=== PATIENT | female | born 1995 | race Two or more races ===

== ENCOUNTER 2023-05-22 14:00 | Inpatient (IN) | payer BC ==
[2023-05-22 15:06] VITALS: BMI 36.5
[2023-05-22 15:53] LABS: BASO % 0.3 % (0-2.0); EOS % 0.4 % (0-4.5); HEMATOCRIT 39.9 % (32.4-45.2); HEMOGLOBIN 12.8 GM/dL (10.7-15.3); LYMPH % 20.2 % (8-40); MCH 30.2 pg (25.7-33.7); MCHC 32.2 g/dl (32.0-36.0); MEAN CELL VOLUME 93.9 fl (80-96); MEAN PLT VOLUME 8.3 fl (7.5-11.1); MONO % 4.4 % (3.8-10.2); NEUT % 74.7 % (42.8-82.8); PLATELET COUNT 195 10^3/uL (134-434); RBC 4.25 M/mm3 (3.60-5.2); RDW 14.6 % (11.6-15.6); WHITE BLOOD COUNT 9.1 K/mm3 (4.0-10.0)
[2023-05-22 16:32] LABS: POTASSIUM 3.8 mmol/L (3.5-5.1)
[2023-05-22 16:33] LABS: CALCIUM 8.7 mg/dL (8.5-10.1)
[2023-05-22 16:34] LABS: BLOOD UREA NITROGEN 7.6 mg/dL (7-18)
[2023-05-22 16:37] LABS: CREATININE 0.6 mg/dL (0.55-1.3)
[2023-05-22] MEDS ORDERED: DINOPROSTONE 10 MG VAGINAL SUPPOSITORY VG ONE (16:44)
[2023-05-22 16:48] LABS: INR 0.89 (0.83-1.09); PROTHROMBIN TIME (PATIENT) 10.3 SEC (9.7-13.0)
[2023-05-22 16:50] LABS: ACTIVATED PTT 25.8 SECONDS (25.2-36.5)
[2023-05-22] MEDS: ELECTROLYTE-148 SOLN 1,000 ML IV SCH (18:10)
[2023-05-22 19:23] LABS: HIV INTERPRETATION NEGATIVE (NEGATIVE)
[2023-05-22] MEDS ORDERED: PROMETHAZINE HCL 25 MG/1 ML VIAL IVPB ONE (19:30)
[2023-05-22] MEDS ORDERED: BUTORPHANOL TARTRATE 1 MG/ML VIAL IVPB ONE (19:30)
[2023-05-22] MEDS ORDERED: BUTORPHANOL TARTRATE 1 MG/ML VIAL ONE (19:31)
[2023-05-22] MEDS ORDERED: PROMETHAZINE HCL 25 MG/1 ML VIAL ONE (19:31)
[2023-05-22] MEDS ORDERED: AMPICILLIN - 2 GM in SODIUM CHLORIDE 100 ML IVPB ONE (22:30)
[2023-05-22] MEDS ORDERED: AMPICILLIN SODIUM 2 GM VIAL ONE (22:49)
[2023-05-22] MEDS ORDERED: FENTANYL/BUPIVACAINE/NS/PF - PCEA - 50 ML DISP.SYRIN EP ONE (23:04)
[2023-05-22] MEDS ORDERED: BUPIVACAINE HCL/PF 0.25% (2.5MG/ML) 10 ML VIAL ONE (23:12)
[2023-05-22] MEDS ORDERED: LIDO 2%/EPI 1:200000 PRESRVFRE (20 ML SDVIAL) ONE (23:12)
[2023-05-22] MEDS: FENTANYL/BUPIVACAINE/NS/PF - PCEA - 50 ML DISP.SYRIN EP SCH (23:30)
[2023-05-22] MEDS ORDERED: NALOXONE HCL 0.4 MG/ML VIAL IVPUSH PRN (23:39)
[2023-05-23] MEDS ORDERED: TERBUTALINE SULFATE 1 MG/1 ML VIAL SQ ONE ×2 (00:29→00:34)
[2023-05-23] MEDS ORDERED: ACETAMINOPHEN 1000 MG/100 ML BAG IVPB ONE (00:47)
[2023-05-23] MEDS ORDERED: ACETAMINOPHEN INJECTION 100 ML IVPB ONE (00:49)
[2023-05-23] MEDS ORDERED: AMPICILLIN SODIUM 1 GM VIAL ONE ×2 (02:32→06:25)
[2023-05-23] MEDS: AMPICILLIN - 1 GM in SODIUM CHLORIDE 100 ML IVPB SCH ×5 (02:35→19:22)
[2023-05-23] MEDS ORDERED: FENTANYL/BUPIVACAINE/NS/PF - PCEA - 50 ML DISP.SYRIN EP ONE ×2 (04:06→07:29)
[2023-05-23] MEDS: ELECTROLYTE-148 SOLN 1,000 ML IV SCH (04:15)
[2023-05-23] MEDS ORDERED: LIDOCAINE HCL 1% PRESERVATIVE FREE - 30ML VIAL ONE (07:17)
[2023-05-23] MEDS ORDERED: OXYTOCIN 20 UNITS in 0.9% NS 20 UNIT/1,000 ML INFUS.BAG IV ONE (07:17)
[2023-05-23] MEDS: FENTANYL/BUPIVACAINE/NS/PF - PCEA - 50 ML DISP.SYRIN EP SCH (07:30)
[2023-05-23] MEDS ORDERED: OXYTOCIN 30 UNITS in 0.9% NS 30 UNIT/500 ML INFUS.BAG IVPB ONE (09:16)
[2023-05-23] MEDS ORDERED: WITCH HAZEL 50% (TUCKS) 40 PAD/JAR PAD TP PRN (10:55)
[2023-05-23] MEDS ORDERED: oxyCODONE HCL 5 MG TABLET PO PRN (10:55)
[2023-05-23] MEDS ORDERED: BISACODYL 10 MG SUPP.RECT RC PRN (10:55)
[2023-05-23] MEDS ORDERED: ACETAMINOPHEN 325 MG TABLET (FP) PO PRN (10:55)
[2023-05-23] MEDS ORDERED: METHYLERGONOVINE MALEATE 0.2 MG/1 ML AMP IM PRN (10:55)
[2023-05-23] MEDS ORDERED: BENZOCAINE 28 GM HEMORRHOIDAL OINTMENT TP PRN (10:55)
[2023-05-23] MEDS ORDERED: BENZOCAINE 20% 57 GM BOTTLE TP PRN (10:55)
[2023-05-23] MEDS ORDERED: METHYLERGONOVINE MALEATE 0.2 MG/1 ML AMP IM ONE (10:56)
[2023-05-23] MEDS ORDERED: OXYTOCIN 20 UNITS in 0.9% NS 20 UNIT/1,000 ML INFUS.BAG IV SCH (11:00)
[2023-05-23 11:38] LABS: CORD BASE EXCESS -5.3 mmol/L (0-2); CORD HCO3 22.2 mmHg (20-29); CORD PCO2 49.8 mmHg (30-78); CORD pH 7.267 (7.14-7.44)
[2023-05-23 11:40] LABS: CORD HCO3 20.7 mmHg (20-29); CORD PCO2 57.8 mmHg (30-78); CORD pH 7.172 (7.14-7.44)
[2023-05-23] MEDS ORDERED: IBUPROFEN 600 MG TABLET (FP) PO ONE (12:41)
[2023-05-23] MEDS: IBUPROFEN 600 MG TABLET (FP) PO PRN ×3 (12:45→23:38)
[2023-05-23 18:51] VITALS: RESP 18
[2023-05-24 07:43] LABS: BASO % 0.1 % (0-2.0); EOS % 0.2 % (0-4.5); HEMATOCRIT 30.5 % (32.4-45.2); MCH 30.8 pg (25.7-33.7); MCHC 32.7 g/dl (32.0-36.0); MEAN CELL VOLUME 94.1 fl (80-96); MEAN PLT VOLUME 8.2 fl (7.5-11.1); MONO % 4.1 % (3.8-10.2); NEUT % 77.6 % (42.8-82.8); PLATELET COUNT 164 10^3/uL (134-434); RBC 3.24 M/mm3 (3.60-5.2); RDW 14.8 % (11.6-15.6)
[2023-05-24] MEDS: IBUPROFEN 600 MG TABLET (FP) PO PRN ×4 (07:49→23:03)
[2023-05-24] MEDS ORDERED: SENNOSIDES/DOCUSATE COMBO (SENNA PLUS) TABLET (UD) PO PRN (22:00)
[2023-05-25] MEDS: IBUPROFEN 600 MG TABLET (FP) PO PRN ×2 (07:41→13:34)
[2023-05-25 10:09] VITALS: BP 116/65; PULSE 76; TEMP 98
== END 2023-05-25 16:31 | disposition home or self-care (01) | DRG 807 ==
LOC: JLDR 14:00 → J3W 05-23 13:30
PROVIDERS: ADMIT Obstetrics & Gynecology; ATTEND Obstetrics & Gynecology
PROC: 3E0P7VZ Introduction of Hormone into Female Reproductive, Via Natural or Artificial Opening (ICD-10-PCS; 2023-05-22)
PROC: 10E0XZZ Delivery of Products of Conception, External Approach (ICD-10-PCS; principal; 2023-05-23)
PROC: 0W8NXZZ Division of Female Perineum, External Approach (ICD-10-PCS; 2023-05-23)
DX: O48.0 Post-term pregnancy (principal); Z37.0 Single live birth; Z3A.40 40 weeks gestation of pregnancy; O99.213 Obesity complicating pregnancy, third trimester; O99.013 Anemia complicating pregnancy, third trimester
CPT/HCPCS: 36415; 36600; 80048; 82803; 85025; 85610; 85730; 86780; 86850; 86900; 86901; 87389

== ENCOUNTER 2025-05-25 04:09 | Inpatient (IN) | payer BC ==
[2025-05-25] MEDS: ELECTROLYTE-148 SOLN 1,000 ML IV SCH ×2 (05:00→10:15)
[2025-05-25 05:06] VITALS: BMI 32.3
[2025-05-25] MEDS ORDERED: FENTANYL/BUPIVACAINE/NS/PF - PCEA - 50 ML DISP.SYRIN EP ONE ×2 (05:06→09:15)
[2025-05-25] MEDS ORDERED: AMPICILLIN SODIUM 2 GM VIAL ONE (05:11)
[2025-05-25 05:24] LABS: ABSOLUTE IMMATURE GRANULOCYTES 0.04 x10^3/uL (0.0-0.031); BASOPHILS # 0.02 x10^3/uL (0.01-0.08)
[2025-05-25] MEDS: AMPICILLIN - 2 GM in SODIUM CHLORIDE 100 ML IVPB ONE (05:25)
[2025-05-25 05:28] LABS: INR 0.95 (0.83-1.09); PROTHROMBIN TIME (PATIENT) 10.4 SEC (9.7-13.0)
[2025-05-25 05:30] LABS: ACTIVATED PTT 26.6 SECONDS (25.2-36.5)
[2025-05-25 05:31] LABS: EOSINOPHIL % 0.4 % (0.7-5.8); EOSINOPHILS # 0.04 x10^3/uL (0.04-0.36); MCHC 31.6 g/dl (32.2-35.5); MEAN CELL VOLUME 90.8 fl (79.4-94.8); MEAN PLT VOLUME 9.8 fl (9.4-12.3); MONOCYTE # 0.37 x10^3/uL (0.24-0.86); MONOCYTE % 3.7 % (4.7-12.5); RDW 14.3 % (12.1-16.8)
[2025-05-25 05:34] LABS: CO2 22.0 mmol/L (21-32); GLUCOSE,RANDOM 110.0 mg/dL (74-106)
[2025-05-25] MEDS: FENTANYL/BUPIVACAINE/NS/PF - PCEA - 50 ML DISP.SYRIN EP SCH (05:35)
[2025-05-25 05:37] LABS: CREATININE 0.5 mg/dL (0.55-1.3)
[2025-05-25] MEDS ORDERED: NALOXONE HCL 0.4 MG/ML VIAL IVPUSH PRN (05:40)
[2025-05-25 06:28] LABS: HIV INTERPRETATION NEGATIVE (NEGATIVE)
[2025-05-25] MEDS ORDERED: AMPICILLIN SODIUM 1 GM VIAL ONE (08:37)
[2025-05-25] MEDS: AMPICILLIN - 1 GM in SODIUM CHLORIDE 100 ML IVPB SCH (08:43)
[2025-05-25] MEDS ORDERED: OXYTOCIN 20 UNITS in 0.9% NS 20 UNIT/1,000 ML INFUS.BAG IV ONE ×2 (09:52→14:24)
[2025-05-25] MEDS: OXYTOCIN 20 UNITS in 0.9% NS 20 UNIT/1,000 ML INFUS.BAG IV SCH (12:50)
[2025-05-25] MEDS ORDERED: METHYLERGONOVINE MALEATE 0.2 MG/1 ML AMP IM PRN (13:04)
[2025-05-25] MEDS ORDERED: BENZOCAINE 28 GM HEMORRHOIDAL OINTMENT TP PRN (13:04)
[2025-05-25] MEDS ORDERED: BISACODYL 10 MG SUPP.RECT RC PRN (13:04)
[2025-05-25] MEDS ORDERED: IBUPROFEN 600 MG TABLET (FP) PO ONE (14:52)
[2025-05-25] MEDS: IBUPROFEN 600 MG TABLET (FP) PO PRN (14:52)
[2025-05-25] MEDS: WITCH HAZEL 50% (TUCKS) 40 PAD/JAR PAD TP PRN (17:47)
[2025-05-25] MEDS: ACETAMINOPHEN 325 MG TABLET (FP) PO PRN (17:47)
[2025-05-25] MEDS: PHENOL 177 ML SPRAY BOTTLE MM PRN (17:49)
[2025-05-25] MEDS: BENZOCAINE 20% 57 GM BOTTLE TP PRN (17:49)
[2025-05-25] MEDS: BENZOCAINE/MENTH/CETYLPYRD CL 1 EACH LOZENGE MM PRN (17:49)
[2025-05-26 08:02] LABS: ABSOLUTE IMMATURE GRANULOCYTES 0.04 x10^3/uL (0.0-0.031); BASOPHILS # 0.01 x10^3/uL (0.01-0.08); EOSINOPHIL % 0.4 % (0.7-5.8); EOSINOPHILS # 0.04 x10^3/uL (0.04-0.36); MCHC 31.5 g/dl (32.2-35.5); MEAN CELL VOLUME 90.9 fl (79.4-94.8); MEAN PLT VOLUME 9.8 fl (9.4-12.3); MONOCYTE # 0.32 x10^3/uL (0.24-0.86); MONOCYTE % 3.2 % (4.7-12.5); RDW 14.4 % (12.1-16.8)
[2025-05-26] MEDS: PRENATAL VITAMINS W/ FOLIC ACID TABLET (FP) PO SCH (09:14)
[2025-05-26 11:34] LABS: HEPATITIS B SURFACE AG MATERN NON-REACTIVE (NONREACTIVE)
[2025-05-26 12:06] LABS: HCV DIAGNOSTIC IN-HOUSE W/RFLX NON-REACTIVE (NONREACTIVE)
[2025-05-26] MEDS: SENNOSIDES/DOCUSATE COMBO (SENNA PLUS) TABLET (UD) PO PRN (22:03)
[2025-05-27 08:35] VITALS: BP 117/63; PULSE 73; RESP 15; TEMP 98.3
== END 2025-05-27 14:15 | disposition home or self-care (01) | DRG 807 ==
LOC: JDEL 04:09 → JLDR 04:30 → J3W 15:14
PROVIDERS: ADMIT Obstetrics & Gynecology; ATTEND Obstetrics & Gynecology
PROC: 10E0XZZ Delivery of Products of Conception, External Approach (ICD-10-PCS; principal; 2025-05-25)
PROC: 0KQM0ZZ Repair Perineum Muscle, Open Approach (ICD-10-PCS; 2025-05-25)
PROC: 0W8NXZZ Division of Female Perineum, External Approach (ICD-10-PCS; 2025-05-25)
DX: O24.424 Gestational diabetes mellitus in childbirth, insulin controlled (principal); Z37.0 Single live birth; O99.824 Streptococcus B carrier state complicating childbirth; O70.1 Second degree perineal laceration during delivery; Z3A.38 38 weeks gestation of pregnancy; O99.214 Obesity complicating childbirth
CPT/HCPCS: 36415; 59409; 80048; 82962; 85025; 85610; 85730; 86780; 86803; 86850; 86900; 86901; 87340; 87389